=== PATIENT | female | born 1990 | race Hispanic/Latino ===

== ENCOUNTER 2024-07-21 19:12 | Emergency (ER) | payer SELFPAY ==
[~2024-07-21] VITALS: Ht 154.9 cm; Wt 79.9 kg
--- NOTE | 2024-07-21 19:18 | NUR ---
UA CUP PROVIDED
--- NOTE | 2024-07-21 19:44 | ERN ---
ED Note History of Present Illness Stated Complaint: BILATERAL ARM WEAKNESS Chief Complaint: Weakness Time Seen by MD: 19:20 Time Seen by Midlevel: 19:30 Dictation: Ms. Campa is a 34 year old female with history of obesity who presented to the Emergency Department this evening for evaluation of arm weakness. 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 She states she has intermittent tingling to her fingers. She states she has also had pain to left lateral neck/scapula. She is right hand dominant. She denies trauma. She denies fever, chills, shortness of breath, cough, chest pain, palpitations, edema, abdominal pain, nausea, vomiting, hematemesis, constipation, diarrhea, melena, hematochezia, dysuria, headache,or dizziness. Allergies: Coded Allergies: No Known Allergies (Unverified Allergy, Unknown, 07/21/24) Past Medical History Past Medical History: No Pertinent History Surgical History: Other Surgical History Other: D AND C, LEFT OVARY PSYCH History: no pertinent psych hx Social History: Negative, Lives with family RN Note Reviewed/Agreed w/PFSH: Yes Review of System Dictation REVIEW OF SYSTEMS: CONSTITUTIONAL: Patient denies fevers, chills, sweats and weight changes. EYES: Patient denies any visual symptoms. EARS, NOSE, AND THROAT: No difficulties with hearing. No symptoms of rhinitis or sore throat. CARDIOVASCULAR: Patient denies chest pains, palpitations, orthopnea and paroxysmal nocturnal dyspnea. RESPIRATORY: No dyspnea on exertion, no wheezing or cough. GI: No nausea, vomiting, diarrhea, constipation, abdominal pain, hematochezia or melena. : No urinary hesitancy or dribbling. No nocturia or urinary frequency. No abnormal urethral discharge. MUSCULOSKELETAL: Reports pain left lateral neck/scapula. Reports pain to bilateral forearms (now just left) as well as tingling to fingers. NEUROLOGIC: No chronic headaches, no seizures. Patient denies numbness, tingling or weakness. PSYCHIATRIC: Patient denies problems with mood disturbance. No problems with anxiety. ENDOCRINE: No excessive urination or excessive thirst. Denies history of diabetes. DERMATOLOGIC: Patient denies any rashes or skin changes. Initial Vital Sign VS Vital Signs Date Time Temp Pulse Resp B/P (MAP) Pulse Ox O2 Delivery O2 Flow Rate FiO2 07/21/24 19:13 98.4 100 20 146/103 100 Room Air Physical Exam Dictation Vital signs: Reviewed. Constitutional: No acute distress. Non-toxic appearing. Head/Face: Normocephalic, atraumatic. Eyes: Periorbital areas with no swelling, redness, or edema. Lids and lashes are normal. Conjunctival injection is absent. Sclera anicteric. Pupils equal, round, reactive to light. ENT: Pinnas intact and no signs of trauma or erythema. Ear canals clear and no discharge. TMs no erythema. No nasal discharge or bleeding noted. Oropharynx with no exudate, redness, swelling, masses, exudates, or evidence of obstruction. Uvula midline. Mucous membranes moist. Neck: Trachea midline, no masses palpated, and no cervical lymphadenopathy. No swelling. Supple, full range of motion. Chest/Axilla: No tenderness, no crepitus, no paradoxical movement, no retractions. Cardiovascular: Regular rate, regular rhythm, no murmur, no gallops. Symmetric pulses. No peripheral edema. Respiratory: Respirations even and unlabored. Lung sounds clear; no wheezes, rales or rhonchi. Gastrointestinal: Inspection is normal. No distention is appreciated. Bowel sounds are normal. No mass or organomegaly . There is no tenderness. No rebound. No rigidity. No voluntary or involuntary guarding. No Romano's sign. Neurological: Normal speech, gross motor function intact, gross sensory function intact. No focal weakness/Paresthesia. Musculoskeletal/Extremities: All extremities have full range of motion. Noted thenar muscle wasting on left. + Phalens test on left; wrist flexion x 60 seconds causes tingling sensation to fingers. Symmetric pulses. Integumentary: Intact. Skin is normal color, warm and dry. Cap refill less than 2 seconds. Results (Laboratory/Radiology) CT Scan Comment: PATIENT: APOLONIA CAMPA MR#: [id number] : 1990 SEX: F AGE: 34 LOCATION: ED ORDER 57 STATUS: REG REPORT#: [id number] SERVICE 54 REASON: hand numbness/forearm numbness ORDERING PHYSICIAN: SHEA SANTIAGO NP PROCEDURE: C SPIN WO - CT CERVICAL SPINE W/O CONTRAST CT CERVICAL SPINE W/O CONTRAST HISTORY: Pain and numbness COMPARISON: None TECHNIQUE: Multiple sequential axial images of the cervical spine were obtained including post processing sagittal and coronal reconstruction images. Patient was not given contrast through intravenous route. FINDINGS: There is straightening of normal lordotic cervical curvature which may be related to muscle spasm or positioning. There is no loss of vertebral height. Evaluation for disc and cord pathology is limited with CT study. No evidence of fracture or dislocation is seen. IMPRESSION: 1. No fracture is seen. CT was performed with one or more following dose reduction techniques: automated exposure control, adjustment of the mA and kv according to patient's size, or use of a iterative reconstruction technique. DICTATED BY: ALISIA MCKINNEY MD DATE: 07/21/242033 ELECTRONICALLY SIGNED BY: ALISIA MCKINNEY MD DATE: 07/21/242037 ED Course ED Course Orders Procedure Category Date Status Time Prednisone 20mg Tab PHA 07/21/24 In Process (Deltasone/Orasone 2 20:00 Ketorolac 60mg/2ml PHA 07/21/24 In Process (Toradol 60mg/2ml) 20:00 Ct Cervical Spine W/O CT 07/21/24 Resulted Contrast 19:55 Current Medications Medications (Trade) Dose Ordered Sig/Malvin Route PRN Reason Start Time Stop Time Status Last Admin Dose Admin Ketorolac Tromethamine (toRADol 60MG/ 2ML) 30 mg ONCE IM 07/21/24 20:00 07/21/24 23:59 07/21/24 20:34 Prednisone (deltaSONE/ oraSONE 20MG TAB) 20 mg ONCE PO 07/21/24 20:00 07/21/24 23:59 07/21/24 20:35 Vital Signs Date Time Temp Pulse Resp B/P (MAP) Pulse Ox O2 Delivery O2 Flow Rate FiO2 07/21/24 19:13 98.4 100 20 146/103 100 Room Air Uneventful ED course. Vital signs stable; afebrile. CT scan of the cervical spine unremarkable; no fracture/dislocation. Findings suspicious for carpal tunnel. She has Thenar muscle wasting on the left. + Phalens test; tingling to fingers following wrist flexion x 60 seconds. While in the ED she received doses Prednisone and Toradol Neutral position wrist splint applied. Medical Decision Making MDM MDM: Differential diagnosis:cervical spine stenosis or fracture, carpal tunnel syndrome, overuse syndrome. Rationale: Tests considered and ordered secondary to shared decision making include: CT Previous outside records reviewed: Old ER visits. Risk of complication and/or morbidity or mortality of patient management: None Medications-Per medication reconciliation Need for hospitalization: Patient does not meet criteria for hospitalization. Need for emergency major/minor surgery: No There are no social concerns with this patient. Prescription drug management: Naproxen, prednisone Prescriptions will include symptomatic care Patient's prior external medical records from other ER visits were reviewed by me as indicated. Prior testing and results from previous visits were reviewed. Prior tests were taken into account with medical decision making and resource utilization, independent historian/historians were used to obtain complete medical history. I independently interpreted the test that were performed, results were reviewed by me and considered findings on radiology if ordered. Medical management and examination interpretation discussions were had by me with other qualified healthcare professionals as indicated for the patient's care. DX & DISP Disposition: Discharge Departure Impression: Primary Impression: Carpal tunnel syndrome of left wrist Condition: Stable Scripts Naproxen (Naproxen) 375 Mg Tablet. 375 MG PO DAILYBKFST, #14 TAB Prov: SHEA SANTIAGO NP 07/21/24 Prednisone (Prednisone) 5 Mg Tablet 20 MG PO DAILYBKFST for 7 Days, #7 TAB 0 Refills Prov: SHEA SANTIAGO NP 07/21/24 Additional Instructions: Where neutral wrist splint (especially at night). This helps reduce pressure on the median nerve. Naproxen daily to reduce inflammation and discomfort. Continue with prednisone 20 mg daily for the next seven days. Ice therapy 15-20 minutes several times a day if swelling is present. Avoid repetitive wrist movements and prolonged wrist flexion/extension. You will need to follow up with the primary care physician for additional diagnostics should symptoms persist. You may benefit from MRI and/or nerve conduction studies. Time of Disposition: 21:00 SHEA SANTIAGO NP Jul 21, 2024 19:44
--- NOTE | 2024-07-21 19:48 | NUR ---
Cynthia saini in [facility] - 07/21/24 at 1956 by QIAN UA COLLECTED AND SENT
--- NOTE | 2024-07-21 20:30 | NUR ---
PT CARE ASSUMED AT THIS TIME
[2024-07-21] MEDS: ketOROlac 60 MG VIAL (30MG/ML) IM SCH (20:34)
[2024-07-21] MEDS: predniSONE 20 MG TABLET PO SCH (20:35)
--- NOTE | 2024-07-21 20:38 | HMCIMG ---
CT CERVICAL SPINE W/O CONTRAST HISTORY: Pain and numbness COMPARISON: None TECHNIQUE: Multiple sequential axial images of the cervical spine were obtained including post processing sagittal and coronal reconstruction images. Patient was not given contrast through intravenous route. FINDINGS: There is straightening of normal lordotic cervical curvature which may be related to muscle spasm or positioning. There is no loss of vertebral height. Evaluation for disc and cord pathology is limited with CT study. No evidence of fracture or dislocation is seen. IMPRESSION: 1. No fracture is seen. CT was performed with one or more following dose reduction techniques: automated exposure control, adjustment of the mA and kv according to patient's size, or use of a iterative reconstruction technique.
[2024-07-21] MEDS ORDERED: NAPR-1505 PO (20:59)
[2024-07-21] MEDS ORDERED: PRED5TAB PO (20:59)
--- NOTE | 2024-07-21 21:34 | NUR ---
PT PLACED IN LEFT WRIST SPLINT
[2024-07-21 21:38] VITALS: BP 126/93; PULSE 85; RESP 17; TEMP 98; O2SAT 100
== END 2024-07-21 21:40 | disposition home or self-care (01) ==
LOC: EDH 19:12
DX: G56.02 Carpal tunnel syndrome, left upper limb (principal)
CPT/HCPCS: 99285; 72125; 96372; 29125; J1885

== ENCOUNTER 2024-07-30 16:53 | Emergency (ER) | payer SELFPAY ==
[~2024-07-30] VITALS: Ht 154.9 cm; Wt 79.4 kg
[~2024-07-30 16:53] MED LIST: NAPR-1505 PO; PRED5TAB PO
[2024-07-30 17:04] VITALS: BP 128/88; PULSE 92; RESP 18; TEMP 98.8; O2SAT 98
--- NOTE | 2024-07-30 17:29 | ERN ---
ED Note History of Present Illness Stated Complaint: HAILEE ARM PAIN Chief Complaint: Upper Extremity Pain/Injury Time Seen by MD: 16:58 Time Seen by Midlevel: 16:59 Dictation: 34-year-old female presents to the emergency department due to reported having an ache to the left wrist along with a not meet type of sensation to the 3rd and 4th digit of the left hand. She states that she has been diagnosed with carpal tunnel syndrome in the past and is here for re-evaluation to make sure that it might be nothing else. Currently, she denies having sustained any trauma to the affected area. She states that she has tried a special type of splint for the carpal tunnel and at times it helps but today she wants a re-evaluation. Upon initial evaluation, the patient presents in no acute distress. 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 Home Meds Active Scripts Naproxen (Naproxen) 375 Mg Tablet.dr, 375 MG PO DAILYBKFST, #14 TAB Prov:SHEA SANTIAGO NP 07/21/24 Prednisone (Prednisone) 5 Mg Tablet, 20 MG PO DAILYBKFST for 7 Days, #7 TAB 0 Refills Prov:SHEA SANTIAGO NP 07/21/24 Past Medical History Past Medical History: No Pertinent History Surgical History: Other Surgical History Other: D&C , LEFT OVARY REMOVAL PSYCH History: no pertinent psych hx Social History: Negative, Lives with family RN Note Reviewed/Agreed w/PFSH: Yes Review of System Dictation MS/Extremity: Left wrist pain Neuro: Tingling to the fingers of the left hand Initial Vital Sign VS Vital Signs Date Time Temp Pulse Resp B/P (MAP) Pulse Ox O2 Delivery O2 Flow Rate FiO2 07/30/24 16:55 99.0 96 16 138/91 98 Room Air 0 07/30/24 17:04 21 Physical Exam Dictation General: awake, alert, NAD Head/Face: Normocephalic, atraumatic Eyes: PERRL, EOMI ENT: Oral mucosa moist Neck: Trachea midline, supple Cardiovascular: RRR, no edema Respiratory: Symmetrical, non-labored Abdomen: Soft, non-tender, non-distended, no guarding. Skin: Warm, dry, good turgor, no rash MS/Extremity: Pulses equal, no cyanosis, neurovascular intact, FROM Neuro: COAx4, GCS 15, steady gait, Psych: Normal behavior, mood, and affect normal ED Course ED Course Vital Signs Date Time Temp Pulse Resp B/P (MAP) Pulse Ox O2 Delivery O2 Flow Rate FiO2 07/30/24 17:04 98.8 92 18 128/88 98 Room Air* 0 21 07/30/24 16:55 99.0 96 16 138/91 98 Room Air 0 Medical Decision Making MDM MDM: Differential diagnosis: Carpal tunnel syndrome, left wrist sprain, left wrist sprain. Rationale: Tests considered and ordered secondary to shared decision making include: Previous outside records reviewed: Old ER visits. Risk of complication and/or morbidity or mortality of patient management: None Medications-Per medication reconciliation Need for hospitalization: Patient does not meet criteria for hospitalization. Need for emergency major/minor surgery: No There are no social concerns with this patient. Prescription drug management Prescriptions will include symptomatic care Patient's prior external medical records from other ER visits were reviewed by me as indicated. Prior testing and results from previous visits were reviewed. Prior tests were taken into account with medical decision making and resource utilization, independent historian/historians were used to obtain complete medical history. I independently interpreted the test that were performed, results were reviewed by me and considered findings on radiology if ordered. Medical management and examination interpretation discussions were had by me with other qualified healthcare professionals as indicated for the patient's care. DX & DISP Disposition: Discharge Departure Impression: Primary Impression: Carpal tunnel syndrome of left wrist Condition: Stable Referrals: JOLEEN ESPINAL MD (PCP) Time of Disposition: 17:28 MINDY ESCALONA Jul 30, 2024 17:29
== END 2024-07-30 17:40 | disposition home or self-care (01) ==
LOC: EDH 16:53
DX: G56.02 Carpal tunnel syndrome, left upper limb (principal); Z79.899 Other long term (current) drug therapy; Z90.721 Acquired absence of ovaries, unilateral
CPT/HCPCS: 99281; 99282